=== PATIENT | male | born 1960 | race Caucasian/White ===

== ENCOUNTER 2017-06-24 06:55 | Day surgery (SDC) | payer BC ==
[~2017-06-24 06:55] MED LIST: Lactated Ringers 1,000 ML IV SCH
[2017-06-24] MEDS ORDERED: Propofol 200 MG/20 ML SDV IV ONE (08:00)
[2017-06-24] MEDS ORDERED: Midazolam 1 MG/ML 2 ML SDV IV ONE (08:00)
--- NOTE | 2017-06-24 08:29 | PCM.OPNOTE ---
- General Post-Op/Procedure Note Date of Surgery/Procedure: 06/24/17 Operative Procedure(s): c scope Findings: anal tags Pre Op Diagnosis: screening Post-Op Diagnosis: anal tags Anesthesia Technique: MAC Primary Surgeon: Dominik Lunsford Anesthesia Provider: Jill Rothman Pathology: none Complications: None Condition: Good Free Text/Narrative:: see dictation
--- NOTE | 2017-06-24 08:34 | PREOP ---
ADMISSION DATE: 06/24/2017 CHIEF COMPLAINT: Need for colon cancer screening. HISTORY OF PRESENT ILLNESS: This is a 57-year-old, white male, who is referred for screening colonoscopy. He is without complaints. He has no issues. He has had a negative family history as well. MEDICATIONS: Include Hyzaar 50/12.5 mg of losartan and hydrochlorothiazide 1 tablet per day. ALLERGIES: He has no known drug allergies. PAST MEDICAL HISTORY: Significant for smoking, essential hypertension, and anxiety. PAST SURGICAL HISTORY: Negative. FAMILY HISTORY: Positive for hypertension. He is . He has 2 children. He works as a maintenance shop laborer and smokes and has an occasional drink. REVIEW OF SYSTEMS: CONSTITUTIONAL: Negative. ENT, eyes respiratory cardiovascular, gastrointestinal, genitourinary is negative. Musculoskeletal is positive for arthralgias and myalgias. PHYSICAL EXAMINATION: GENERAL: This is a well-developed, well-nourished white male, appearing in no acute distress. VITAL SIGNS: Reviewed. They are stable. He is afebrile. HEENT: Exam is grossly within normal limits. LUNGS: Clear to auscultation. HEART: Regular rate and rhythm. ABDOMEN: Soft and nontender. ASSESSMENT: A 57-year-old, white male, in need of screening colonoscopy. PLAN: C-scope procedure and risks were explained to the patient, to include bleeding, perforation, infection. The patient expresses understanding, and he asked us to proceed. /[id number] /MODL
--- NOTE | 2017-06-24 09:27 | OR ---
DATE OF OPERATION: 06/24/2017 SURGEON: Dominik Lunsford MD PROCEDURE PERFORMED: Colonoscopy. PREOPERATIVE DIAGNOSIS: Colon cancer screening. POSTOPERATIVE DIAGNOSIS: Anal tags. INDICATIONS FOR PROCEDURE: This is a 57-year-old white male, who is referred for a screening colonoscopy. He was offered and accepted same. DESCRIPTION OF OPERATION: After an excellent IV sedation was administered, digital rectal exam was performed. No marked abnormality was noted. The flexible colonoscope was inserted and advanced to the cecum without difficulty. The following findings were noted; one, the prep was excellent. Ascending colon, unremarkable. Two, transverse colon, unremarkable. Three, descending colon, unremarkable. Four, sigmoid and rectum unremarkable. On retroflexion of the scope, there was evidence of some anal tags of no clinical significance. The colon was deflated, scope was removed. The patient tolerated the procedure well and was taken to recovery in good condition. Repeat colonoscopy in 10 years. /[id number]/ZABRINA
[2017-06-24 09:41] VITALS: BP 144/104
== END 2017-06-24 09:31 | disposition home or self-care (01) ==
LOC: FB.SDS 06:55
PROVIDERS: ATTEND Surgery
DX: Z12.11 Encounter for screening for malignant neoplasm of colon (principal); K64.4 Residual hemorrhoidal skin tags; I10 Essential (primary) hypertension; F41.9 Anxiety disorder, unspecified; Z79.899 Other long term (current) drug therapy; F17.210 Nicotine dependence, cigarettes, uncomplicated
CPT/HCPCS: 45378; J2250; J2704; J7120

== ENCOUNTER 2022-12-19 11:08 | Emergency (ER) | payer BC ==
[2022-12-19] MEDS ORDERED: Lidocaine 1% 20 ML MDV INFILT ONE (11:09)
[2022-12-19] MEDS ORDERED: Diphtheria,Pertussis(Acell),Tetanus Vaccine 0.5 ML Syringe IM ONE (11:26)
[2022-12-19 12:44] VITALS: BP 120/87; PULSE 88
== END 2022-12-19 12:30 | disposition home or self-care (01) ==
LOC: FB.ED 11:08
DX: S61.211A Laceration without foreign body of left index finger without damage to nail, initial encounter (principal); I10 Essential (primary) hypertension; Z87.891 Personal history of nicotine dependence; Z79.899 Other long term (current) drug therapy; Z23 Encounter for immunization; W26.8XXA Contact with other sharp object(s), not elsewhere classified, initial encounter
CPT/HCPCS: 12002; 90471; 90715; 99282; 99282-25